=== PATIENT | female | born 1975 | race Caucasian/White ===

== ENCOUNTER 2017-01-25 02:03 | Emergency (ER) | payer OTHER ==
[2017-01-25 03:02] LABS: AMPHETAMINES NEGATIVE (NEGATIVE); BARBITURATES NEGATIVE (NEGATIVE); BENZODIAZEPINES POSITIVE (NEGATIVE); COCAINE NEGATIVE (NEGATIVE); MARIJUANA (THC) POSITIVE (NEGATIVE); METHADONE NEGATIVE (NEGATIVE); TRICYCLIC ANTIDEPRESSANT NEGATIVE (NEGATIVE)
[2017-01-25 03:17] LABS: BASOPHIL 0.2 % (0-2); EOSINOPHIL 0.6 % (0-5); HCT 39.3 % (37.0-47.0); HGB 13.8 g/dl (12.5-16.0); LYMPHOCYTE 18.4 % (15-48); MCH 30.9 pg (25.0-31.0); MCHC 35.1 g/dL (32.0-36.0); MCV 87.9 fL (78.0-100.0); MONOCYTE 7.2 % (0-12); MPV 8.5 fL (6.0-9.5); NEUTROPHIL 73.6 % (41-80); PLT 440 K/uL (150-400); RBC 4.47 M/uL (4.20-5.40); RDW 14.8 % (11.5-14.0); WBC 17.9 K/uL (4.0-10.5)
[2017-01-25 03:35] LABS: ALBUMIN 4.5 g/dL (3.5-5.0); BILIRUBIN - TOTAL 0.2 mg/dL (0.1-1.0); CREATININE 0.7 mg/dL (0.5-1.0); GLOBULIN (CALCULATION) 3.3 g/dL (2.2-4.2); POTASSIUM 3.9 mmol/L (3.5-5.1); TOTAL PROTEIN 7.8 g/dL (6.4-8.3)
[2017-01-25 03:36] LABS: ACETAMINOPHEN (TYLENOL) < 5.0 ug/mL (10.0-30.0); ALCOHOL (ETOH) MEDICAL NONE DETECTED; SALICYLATE < 6 ug/mL (0-300)
== END 2017-01-25 04:28 | disposition home or self-care (01) ==
LOC: FER 02:03
PROVIDERS: Emergency Medicine Emergency Medical Services
DX: T42.4X1A Poisoning by benzodiazepines, accidental (unintentional), initial encounter (principal); E86.9 Volume depletion, unspecified; F41.9 Anxiety disorder, unspecified; F31.30 Bipolar disorder, current episode depressed, mild or moderate severity, unspecified; F17.210 Nicotine dependence, cigarettes, uncomplicated; Z88.0 Allergy status to penicillin; Z88.6 Allergy status to analgesic agent; Z79.899 Other long term (current) drug therapy
CPT/HCPCS: 36415; 80053; 80305; 85025; 93005; G0480

== ENCOUNTER 2017-01-27 13:16 | Emergency (ER) | payer OTHER | END 2017-01-27 14:24 | disposition home or self-care (01) | LOC: FER 13:16 | DX: S40.022A Contusion of left upper arm, initial encounter (principal); F41.9 Anxiety disorder, unspecified; F32.9 Major depressive disorder, single episode, unspecified; Z79.899 Other long term (current) drug therapy; Y09 Assault by unspecified means; Y07.03 Male partner, perpetrator of maltreatment and neglect | CPT/HCPCS: J1885 ==

== ENCOUNTER 2017-02-04 02:53 | Emergency (ER) | payer OTHER ==
[2017-02-04 03:09] LABS: BILIRUBIN NEGATIVE (NEGATIVE); BLOOD NEGATIVE Ery/uL (NEGATIVE); CLARITY CLEAR (CLEAR); COLOR YELLOW (YELLOW); GLUCOSE (U) NORMAL (NORMAL); KETONE (U) NEGATIVE (NEGATIVE); LEUKOCYTES NEGATIVE Leu/uL (NEGATIVE); NITRITE NEGATIVE (NEGATIVE); PROTEIN NEGATIVE (NEGATIVE); SPECIFIC GRAVITY <=1.005 (1.001-1.030); UROBILINOGEN 0.2 mg/dL (0.2-1.0)
[2017-02-04 03:19] LABS: AMPHETAMINES NEGATIVE (NEGATIVE); BARBITURATES NEGATIVE (NEGATIVE); BENZODIAZEPINES NEGATIVE (NEGATIVE); COCAINE NEGATIVE (NEGATIVE); MARIJUANA (THC) POSITIVE (NEGATIVE); METHADONE NEGATIVE (NEGATIVE); TRICYCLIC ANTIDEPRESSANT NEGATIVE (NEGATIVE)
[2017-02-04 03:24] LABS: BASOPHIL 0.2 % (0-2); EOSINOPHIL 1.9 % (0-5); HCT 36.9 % (37.0-47.0); HGB 12.7 g/dl (12.5-16.0); MCH 30.5 pg (25.0-31.0); MCHC 34.4 g/dL (32.0-36.0); MCV 88.7 fL (78.0-100.0); MONOCYTE 7.8 % (0-12); NEUTROPHIL 70.1 % (41-80); PLT 544 K/uL (150-400); RBC 4.16 M/uL (4.20-5.40)
[2017-02-04 03:26] LABS: WBC 24.4 K/uL (4.0-10.5)
[2017-02-04 03:42] LABS: ALBUMIN 3.9 g/dL (3.5-5.0); BILIRUBIN - TOTAL 0.2 mg/dL (0.1-1.0); CREATININE 0.8 mg/dL (0.5-1.0); GLOBULIN (CALCULATION) 3.3 g/dL (2.2-4.2); POTASSIUM 4.2 mmol/L (3.5-5.1); TOTAL PROTEIN 7.2 g/dL (6.4-8.3)
[2017-02-04 03:45] LABS: LACTIC ACID 1.3 mmol/L (0.5-2.2)
[2017-02-04 03:50] LABS: ACETAMINOPHEN (TYLENOL) < 5.0 ug/mL (10.0-30.0); ALCOHOL (ETOH) MEDICAL NONE DETECTED; SALICYLATE < 6 ug/mL (0-300)
[2017-02-04 03:56] LABS: NEUTROPHILS(M) 75 % (41-80)
[2017-02-04 03:57] LABS: BAND 4 % (0-10); EOSINOPHIL(M) 1 % (0-5); LYMPHOCYTE(M) 15 % (15-48); MONOCYTE(M) 5 % (0-12)
[2017-02-10 14:55] LABS: PLATELET ESTIMATE INCREASED; PLATELET MORPHOLOGY NORMAL; TOTAL CELL COUNT 100
== END 2017-02-04 11:29 ==
LOC: FER 02:53
PROVIDERS: Emergency Medicine Emergency Medical Services
DX: J18.9 Pneumonia, unspecified organism (principal); F31.30 Bipolar disorder, current episode depressed, mild or moderate severity, unspecified; F41.8 Other specified anxiety disorders; R82.90 Unspecified abnormal findings in urine; E78.5 Hyperlipidemia, unspecified; F17.200 Nicotine dependence, unspecified, uncomplicated; Z88.0 Allergy status to penicillin; Z88.6 Allergy status to analgesic agent; Z79.899 Other long term (current) drug therapy; Z90.49 Acquired absence of other specified parts of digestive tract
CPT/HCPCS: 36415; 71020; 80053; 80305; 81003; 83605; 84484; 85025; 87040; 93005; 94640; G0480; J1170; J1885

== ENCOUNTER 2020-10-07 15:28 | Emergency (ER) | payer OTHER ==
[~2020-10-07 15:28] MED LIST: ACETAMINOPHEN500 M1 PO; ASPIRIN CHEWABL81 MG PO; ATARAX25 MG PO; BACLOFEN 10MG T10 MG PO; DULERA 200 MCG8.8 GM INH; GEODON60 MG PO; INDERAL20 MG PO; LIPITOR40 MG PO; MEDROL 4MG DOSEP4 MG PO; MUCINEX 600MG600 MG PO; NEURONTIN400 MG PO; NICOTINE PATCH1 EAC2 TD; PEPCID AC20 MG PO; PLAVIX75 MG PO; PREDNISONE 10MG10 MG PO; PROZAC20 MG PO; ROBAXIN750 MG PO; ULTRAM50 MG PO; VALIUM10 MG PO; VENTOLIN HFA IN18 GM INH; ZYPREXA 5MG TABL5 MG PO
[2020-10-07 16:56] LABS: BASOPHIL 0.4 % (0-2); EOSINOPHIL 3.4 % (0-5); HCT 39.8 % (37.0-47.0); HGB 13.3 g/dl (12.5-16.0); LYMPHOCYTE 36.7 % (15-48); MCH 30.8 pg (25.0-31.0); MCHC 33.4 g/dL (32.0-36.0); MCV 92.1 fL (78.0-100.0); MONOCYTE 8.1 % (0-12); MPV 9.2 fL (6.0-9.5); NRBC 0; PLT 401 K/uL (150-400); RBC 4.32 M/uL (4.20-5.40); RDW 14.1 % (11.5-14.0)
[2020-10-07 17:00] LABS: NEUTROPHIL 51.2 % (41-80)
[2020-10-07 17:12] LABS: ALBUMIN 3.4 g/dL (3.4-5.0); BILIRUBIN - TOTAL 0.2 mg/dL (0.2-1.0); BUN/CREAT RATIO (CALC) 17.1 RATIO; CREATININE 0.7 mg/dL (0.51-0.95); GLOBULIN (CALCULATION) 4.1 g/dL; POTASSIUM 3.8 mmol/L (3.5-5.1); TOTAL PROTEIN 7.5 g/dL (6.4-8.2)
[2020-10-07 17:35] LABS: CORONAVIRUS 2019 SARS-COV-2 NEGATIVE (NEGATIVE); INFLUENZA A NAA NEGATIVE (NEGATIVE)
== END 2020-10-07 18:35 | disposition home or self-care (01) ==
LOC: FER 15:28
PROVIDERS: Nurse Practitioner Family
DX: M25.50 Pain in unspecified joint (principal); M79.10 Myalgia, unspecified site; G89.29 Other chronic pain; I25.2 Old myocardial infarction; J43.9 Emphysema, unspecified; F17.210 Nicotine dependence, cigarettes, uncomplicated; Z20.822 Contact with and (suspected) exposure to COVID-19
CPT/HCPCS: 36415; 80053; 85025; 87880; J1885; J7030; U0002

== ENCOUNTER 2020-11-26 03:33 | Emergency (ER) | payer OTHER ==
[2020-11-26 04:46] LABS: BUN/CREAT RATIO (CALC) 17.1 RATIO; CREATININE 0.7 mg/dL (0.51-0.95); POTASSIUM 3.7 mmol/L (3.5-5.1)
[2020-11-26 04:47] LABS: BASOPHIL 0.5 % (0-2); EOSINOPHIL 3.8 & (0-5); HCT 39.9 % (37.0-47.0); HGB 13.1 g/dl (12.5-16.0); MCH 30.3 pg (25.0-31.0); MCHC 32.8 g/dL (32.0-36.0); MCV 92.4 fL (78.0-100.0); MONOCYTE 5.2 % (0-12); NEUTROPHIL 68.2 % (41-80); PLT 347 K/uL (150-400); RBC 4.32 M/uL (4.20-5.40); RDW 14.1 % (11.5-14.0)
[2020-11-26 05:43] LABS: AMPHETAMINES NEGATIVE (NEGATIVE); BARBITURATES NEGATIVE (NEGATIVE); ECSTASY (MDMA) NEGATIVE (NEGATIVE); MARIJUANA (THC) POSITIVE (NEGATIVE); METHADONE NEGATIVE (NEGATIVE); OPIATES NEGATIVE (NEGATIVE); OXYCODONE NEGATIVE (NEGATIVE)
== END 2020-11-26 04:57 | disposition home or self-care (01) ==
LOC: FER 03:33
PROVIDERS: Student in an Organized Health Care Education/Training Program
DX: F41.0 Panic disorder [episodic paroxysmal anxiety] (principal); F31.9 Bipolar disorder, unspecified; F17.210 Nicotine dependence, cigarettes, uncomplicated; Z79.899 Other long term (current) drug therapy
CPT/HCPCS: 36415; 71045; 80048; 80305; 84484; 84703; 85025; 93005; J2060

== ENCOUNTER 2021-02-17 09:28 | Emergency (ER) | payer OTHER ==
[2021-02-17 10:29] LABS: AMPHETAMINES NEGATIVE (NEGATIVE); BARBITURATES NEGATIVE (NEGATIVE); ECSTASY (MDMA) NEGATIVE (NEGATIVE); MARIJUANA (THC) POSITIVE (NEGATIVE); METHADONE NEGATIVE (NEGATIVE); OPIATES NEGATIVE (NEGATIVE); OXYCODONE NEGATIVE (NEGATIVE)
[2021-02-17 10:39] LABS: BASOPHIL 0.5 % (0-2); EOSINOPHIL 3.1 % (0-5); HCT 41.8 % (37.0-47.0); HGB 13.9 g/dl (12.5-16.0); LYMPHOCYTE 34.2 % (15-48); MCHC 33.3 g/dL (32.0-36.0); MCV 93.1 fL (78.0-100.0); MPV 8.8 fL (6.0-9.5); NEUTROPHIL 53.7 % (41-80); NRBC 0; PLT 331 K/uL (150-400); RBC 4.49 M/uL (4.20-5.40); RDW 14.7 % (11.5-14.0); WBC 14.1 K/uL (4.0-10.5)
[2021-02-17 11:02] LABS: ALBUMIN 3.7 g/dL (3.4-5.0); ALKALINE PHOSHATASE 117 U/L (46-116); ALT 35 U/L (14-59); AST 22 U/L (15-37); BILIRUBIN - TOTAL 0.2 mg/dL (0.2-1.0); BUN 7 mg/dL (7-18); BUN/CREAT RATIO (CALC) 10.9 RATIO; CHLORIDE 105 mmol/L (98-107); CO2 (BICARBONATE) 28 mmol/L (21-32); CREATININE 0.64 mg/dL (0.51-0.95); GLUCOSE 74 mg/dL (74-106); POTASSIUM 4.1 mmol/L (3.5-5.1); TOTAL PROTEIN 7.7 g/dL (6.4-8.2)
[2021-02-17 11:03] LABS: ACETAMINOPHEN (TYLENOL) < 2.0 ug/mL (10.0-30.0)
== END 2021-02-17 14:10 | disposition other institution (70) ==
LOC: FER 09:28
PROVIDERS: Emergency Medicine
DX: F32.9 Major depressive disorder, single episode, unspecified (principal); F41.9 Anxiety disorder, unspecified; J44.9 Chronic obstructive pulmonary disease, unspecified; F17.200 Nicotine dependence, unspecified, uncomplicated; Z88.0 Allergy status to penicillin; Z79.899 Other long term (current) drug therapy; Z20.822 Contact with and (suspected) exposure to COVID-19
CPT/HCPCS: 36415; 80053; 80305; 85025; 99285; G0480; J2060; U0002

== ENCOUNTER 2021-02-21 13:01 | Emergency (ER) | payer OTHER ==
[2021-02-21 15:23] LABS: BASOPHIL 0.4 % (0-2); EOSINOPHIL 1.1 % (0-5); HCT 39.3 % (37.0-47.0); HGB 13.7 g/dl (12.5-16.0); MCH 31.9 pg (25.0-31.0); MCHC 34.9 g/dL (32.0-36.0); MCV 91.4 fL (78.0-100.0); NRBC 0; PLT 354 K/uL (150-400); RDW 14.2 % (11.5-14.0); WBC 20.3 K/uL (4.0-10.5)
[2021-02-21 15:40] LABS: ALBUMIN 3.9 g/dL (3.4-5.0); BILIRUBIN - TOTAL 0.3 mg/dL (0.2-1.0); BUN/CREAT RATIO (CALC) 16.9 RATIO; CREATININE 0.71 mg/dL (0.51-0.95); POTASSIUM 3.5 mmol/L (3.5-5.1); TOTAL PROTEIN 7.9 g/dL (6.4-8.2)
[2021-02-21 15:48] LABS: PRO-BNP 21 pg/mL (<125)
[2021-02-21] MEDS ORDERED: VIBRAMYCIN100 MG PO (17:41)
[2021-02-21] MEDS ORDERED: MEDROL 4MG DOSEP4 MG PO (17:41)
== END 2021-02-21 17:58 | disposition home or self-care (01) ==
LOC: FER 13:01
PROVIDERS: Emergency Medicine
DX: J44.1 Chronic obstructive pulmonary disease with (acute) exacerbation (principal); F41.9 Anxiety disorder, unspecified; R07.89 Other chest pain; R00.0 Tachycardia, unspecified; F17.210 Nicotine dependence, cigarettes, uncomplicated; I25.2 Old myocardial infarction; Z88.0 Allergy status to penicillin; Z79.899 Other long term (current) drug therapy; Z79.82 Long term (current) use of aspirin; Z79.02 Long term (current) use of antithrombotics/antiplatelets
CPT/HCPCS: 36415; 71045; 71275; 80053; 83880; 84145; 84484; 85025; 85379; 93005; J2060; Q9967

== ENCOUNTER 2021-11-23 04:23 | Emergency (ER) | payer OTHER ==
[~2021-11-23 04:23] MED LIST changes: +VIBRAMYCIN100 MG PO
[2021-11-23 06:19] LABS: BILIRUBIN NEGATIVE (NEGATIVE); BLOOD NEGATIVE Ery/uL (NEGATIVE); CLARITY CLEAR (CLEAR); COLOR YELLOW (YELLOW); GLUCOSE (U) NORMAL (NORMAL); LEUKOCYTES NEGATIVE Leu/uL (NEGATIVE); NITRITE NEGATIVE (NEGATIVE); PROTEIN NEGATIVE (NEGATIVE); SPECIFIC GRAVITY 1.015 (1.001-1.030); UROBILINOGEN 0.2 mg/dL (0.2-1.0)
[2021-11-23 06:22] LABS: MARIJUANA (THC) POSITIVE (NEGATIVE)
[2021-11-23 06:23] LABS: AMPHETAMINES NEGATIVE (NEGATIVE); BARBITURATES NEGATIVE (NEGATIVE); ECSTASY (MDMA) NEGATIVE (NEGATIVE); METHADONE NEGATIVE (NEGATIVE); OPIATES NEGATIVE (NEGATIVE); OXYCODONE NEGATIVE (NEGATIVE)
[2021-11-23 06:46] LABS: CORONAVIRUS 2019 SARS-COV-2 NEGATIVE (NEGATIVE); INFLUENZA A NAA NEGATIVE (NEGATIVE)
[2021-11-23 06:50] LABS: ACETAMINOPHEN (TYLENOL) < 2.0 ug/mL (10.0-30.0); ALBUMIN 3.6 g/dL (3.4-5.0); ALKALINE PHOSHATASE 101 U/L (46-116); ALT 54 U/L (14-59); AST 32 U/L (15-37); BILIRUBIN - TOTAL 0.2 mg/dL (0.2-1.0); BUN 12 mg/dL (7-18); CHLORIDE 106 mmol/L (98-107); CO2 (BICARBONATE) 22 mmol/L (21-32); GLOBULIN (CALCULATION) 3.4 g/dL; GLUCOSE 174 mg/dL (74-106); POTASSIUM 3.3 mmol/L (3.5-5.1)
[2021-11-23 07:06] LABS: BASOPHIL 0.2 % (0-2); EOSINOPHIL 1.2 % (0-5); HCT 41.8 % (37.0-47.0); HGB 14.5 g/dl (12.5-16.0); LYMPHOCYTE 17.4 % (15-48); MCH 32.2 pg (25.0-31.0); MCHC 34.7 g/dL (32.0-36.0); MCV 92.7 fL (78.0-100.0); MONOCYTE 5.9 % (0-12); NRBC 0; PLT 314 K/uL (150-400); RBC 4.51 M/uL (4.20-5.40); RDW 13.9 % (11.5-14.0); WBC 14.5 K/uL (4.0-10.5)
== END 2021-11-23 12:42 ==
LOC: FER 04:23
PROVIDERS: Internal Medicine
DX: F31.9 Bipolar disorder, unspecified (principal); F17.210 Nicotine dependence, cigarettes, uncomplicated; Z88.0 Allergy status to penicillin; Z88.8 Allergy status to other drugs, medicaments and biological substances; Z20.822 Contact with and (suspected) exposure to COVID-19
CPT/HCPCS: 36415; 80053; 80305; 81003; 84145; 84484; 85025; 93005; 96372; G0480; J1200; J1630; J2060; U0002

== ENCOUNTER 2022-03-02 20:37 | Emergency (ER) | payer OTHER ==
[2022-03-02 22:03] LABS: BASOPHIL 0.6 % (0-2); EOSINOPHIL 2.8 % (0-5); HCT 41.3 % (37.0-47.0); HGB 14.2 g/dl (12.5-16.0); LYMPHOCYTE 43.1 % (15-48); MCH 31.9 pg (25.0-31.0); MCHC 34.4 g/dL (32.0-36.0); MCV 92.8 fL (78.0-100.0); MONOCYTE 8.6 % (0-12); MPV 9.1 fL (6.0-9.5); NEUTROPHIL 44.4 % (41-80); NRBC 0; PLT 325 K/uL (150-400); RBC 4.45 M/uL (4.20-5.40); RDW 14.6 % (11.5-14.0)
[2022-03-02 22:15] LABS: BILIRUBIN NEGATIVE (NEGATIVE); BLOOD NEGATIVE Ery/uL (NEGATIVE); CLARITY CLEAR (CLEAR); COLOR YELLOW (YELLOW); GLUCOSE (U) NORMAL (NORMAL); LEUKOCYTES NEGATIVE Leu/uL (NEGATIVE); NITRITE NEGATIVE (NEGATIVE); PROTEIN NEGATIVE (NEGATIVE); UROBILINOGEN 0.2 mg/dL (0.2-1.0)
[2022-03-02 22:25] LABS: BACTERIA TRACE; ECSTASY (MDMA) NEGATIVE (NEGATIVE); MARIJUANA (THC) POSITIVE (NEGATIVE); METHADONE NEGATIVE (NEGATIVE); OPIATES NEGATIVE (NEGATIVE)
[2022-03-02 22:26] LABS: AMPHETAMINES NEGATIVE (NEGATIVE); BARBITURATES NEGATIVE (NEGATIVE); OXYCODONE NEGATIVE (NEGATIVE)
[2022-03-02 22:29] LABS: ALBUMIN 3.8 g/dL (3.4-5.0); ALKALINE PHOSHATASE 113 U/L (46-116); ALT 62 U/L (14-59); AST 36 U/L (15-37); BILIRUBIN - TOTAL 0.2 mg/dL (0.2-1.0); BUN 9 mg/dL (7-18); BUN/CREAT RATIO (CALC) 12.2 RATIO; CHLORIDE 104 mmol/L (98-107); CO2 (BICARBONATE) 29 mmol/L (21-32); CREATININE 0.74 mg/dL (0.51-0.95); GLOBULIN (CALCULATION) 3.5 g/dL; GLUCOSE 109 mg/dL (74-106); POTASSIUM 3.3 mmol/L (3.5-5.1); TOTAL PROTEIN 7.3 g/dL (6.4-8.2)
[2022-03-02 22:31] LABS: ACETAMINOPHEN (TYLENOL) < 2.0 ug/mL (10.0-30.0)
[2022-03-02 22:43] LABS: CORONAVIRUS 2019 SARS-COV-2 NEGATIVE (NEGATIVE); INFLUENZA A NAA NEGATIVE (NEGATIVE)
== END 2022-03-03 17:33 | disposition other institution (70) ==
LOC: FER 20:37
PROVIDERS: Emergency Medicine
DX: R45.850 Homicidal ideations (principal); Z88.0 Allergy status to penicillin; Z88.8 Allergy status to other drugs, medicaments and biological substances; F17.200 Nicotine dependence, unspecified, uncomplicated; Z20.822 Contact with and (suspected) exposure to COVID-19
CPT/HCPCS: 36415; 80053; 80305; 81001; 85025; 96372; G0480; J1170; J1200; J2060; J3486; U0002